=== PATIENT | male | born 1995 | race African-American/Black ===

== ENCOUNTER 2020-02-09 21:58 | Emergency (ER) | payer OTHER ==
--- NOTE | 2020-02-09 22:43 | ED Physician Documentation ---
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[place] recently returned from [place] presents with fevers and headaches and sore throat and cough.He reports he is otherwise healthy and up-to-date on all of his immunizations denies severe headache neck pain or rashes.) Review of Systems Constitutional: reports: Fever, Chills, Myalgias Eyes: reports: Reviewed and negative Ears: reports: Reviewed and negative Nose: reports: Reviewed and negative Throat: reports: Sore throat, Reviewed and negative Cardiac: reports: Reviewed and negative Respiratory: reports: Reviewed and negative GI: reports: Reviewed and negative : reports: Reviewed and negative Skin: reports: Reviewed and negative Musculoskeletal: reports: Reviewed and negative Neurologic: reports: Reviewed and negative Psychiatric: reports: Reviewed and negative Endocrine: reports: Reviewed and negative Immunocompromised: reports: Reviewed and negative PD PAST MEDICAL HISTORY - Allergies Allergies/Adverse Reactions: Allergies Allergy/AdvReac Type Severity Reaction Status Date / Time No Known Drug Allergies Allergy Verified 02/09/20 22:03 PD ED PE NORMAL - Vitals Vital signs reviewed: Yes - General General: Alert and oriented X 3, No acute distress, Well developed/nourished - HEENT HEENT: Atraumatic, PERRL, EOMI, Ears normal, Moist mucous membranes, Pharynx benign, Dentition benign - Neck Neck: Supple, no meningeal sign, No adenopathy, No JVD, No bruit - Cardiac Cardiac: RRR, No murmur, Strong equal pulses - Respiratory Respiratory: No respiratory distress, Clear bilaterally - Abdomen Abdomen: Normal bowel sounds, Soft, Non tender, Non distended, No organomegaly - Back Back: No CVA TTP - Derm Derm: Normal color, Warm and dry, No rash - Extremities Extremities: No deformity, No tenderness to palpate, Normal ROM s pain, No edema - Neuro Neuro: Alert and oriented X 3, [employer] 2-12 intact, No motor deficit, No sensory deficit, Normal speech - Psych Psych: Normal mood, Normal affect Results - Vitals Vitals: Vital Signs - 24 hr 02/09/20 22:03 Temperature 37.2 C Heart Rate 75 Respiratory 14 Rate Blood Pressure 143/81 H O2 Saturation 100 Oxygen O2 Source Room air - Labs Labs: Laboratory Tests 02/09/20 02/09/20 22:15 22:15 Influenza A (Rapid) Negative Influenza B (Rapid) Negative Group A Strep Rapid Negative PD MEDICAL DECISION MAKING - ED course Complexity details: other (will screen for flu and covid 19 to [facility] and close f/u tomorrow with medical on [facility].) Departure - Departure Disposition: 01 Home, Self Care Clinical Impression: Viral syndrome Condition: Good Instructions: ED Viral Syndrome Follow-Up: YOUR, DOCTOR [Other] - Tomorrow
[2020-02-09 23:16] LABS: RAPID STREP SCREEN Negative (Negative)
[2020-02-09 23:32] VITALS: BP 122/68
== END 2020-02-09 23:32 | disposition home or self-care (01) ==
LOC: ED 21:58
DX: B34.9 Viral infection, unspecified (principal)
CPT/HCPCS: 81599; 87070; 87275; 87276; 87430; 99282; 99283

== ENCOUNTER 2020-05-14 05:27 | Emergency (ER) | payer OTHER ==
[2020-05-14 05:33] VITALS: BP 144/78
--- NOTE | 2020-05-14 05:36 | ED Physician Documentation ---
PD HPI HEENT - Stated complaint Stated Complaint: SORE THROAT - Chief complaint Chief Complaint: Heent - History obtained from History obtained from: Patient - History of Present Illness Timing - onset: How many days ago (2-3) Timing - duration: Days Timing - details: Gradual onset Location: Throat Improves: Nothing Worsens: Swalllowing Associated symptoms: No: Fever, Cough - Additional information Additional information: c/o sore throat, sensation of something swollen in his throat (he attributes it to his epiglottis although it is not clear to me why he thinks that's what is causing his discomfort). Review of Systems Constitutional: denies: Fever Throat: reports: Sore throat Respiratory: denies: Dyspnea, Cough PD PAST MEDICAL HISTORY - Past Medical History Past Medical History: No - Present Medications Home Medications: Ambulatory Orders Medication Instructions Recorded Confirmed Amoxicillin 500 mg PO BID #19 capsule 05/14/20 - Allergies Allergies/Adverse Reactions: Allergies Allergy/AdvReac Type Severity Reaction Status Date / Time No Known Drug Allergies Allergy Verified 02/09/20 22:03 - Living Situation Living Arrangement: reports: At home PD ED PE NORMAL - Vitals Vital signs reviewed: Yes - General General: Alert and oriented X 3, No acute distress, Well developed/nourished - HEENT HEENT: Moist mucous membranes - Neck Neck: Supple, no meningeal sign PD ED PE EXPANDED - HEENT HEENT: Pharyngeal erythema, Swollen tonsils. No: Tonsillar exudate Results - Vitals Vitals: Vital Signs - 24 hr 05/14/20 05:30 Temperature 36.9 C Heart Rate 70 Respiratory 16 Rate Blood Pressure 144/78 H O2 Saturation 98 Oxygen O2 Source Room air - Labs Labs: Laboratory Tests 05/14/20 05:50 Group A Strep Rapid POSITIVE H PD MEDICAL DECISION MAKING - ED course Complexity details: reviewed results, re-evaluated patient, considered differential, d/w patient Departure - Departure Disposition: 01 Home, Self Care Clinical Impression: Strep pharyngitis Condition: Good Instructions: ED Strep Pharyngitis Conf Follow-Up: MEKA JAUREGUI [Primary Care Provider] - Prescriptions: Amoxicillin 500 mg PO BID #19 capsule Discharge Date/Time: 05/14/20 06:25
[2020-05-14 06:06] LABS: RAPID STREP SCREEN POSITIVE (Negative)
[2020-05-14] MEDS ORDERED: CHERRY SYRUP 10 ML UDC PO ONE (06:15)
[2020-05-14] MEDS ORDERED: AMOXICILLIN 250 MG CAPSULE PO STA (06:15)
[2020-05-14] MEDS ORDERED: DEXAMETHASONE 10 MG/ML VIAL PO STA (06:15)
== END 2020-05-14 06:25 | disposition home or self-care (01) ==
LOC: ED 05:27
DX: J02.0 Streptococcal pharyngitis (principal)
CPT/HCPCS: 87430; 99283; A9270